=== PATIENT | female | born 1995 | race Caucasian/White ===

== ENCOUNTER 2018-02-02 21:15 | Emergency (ER) | payer OTHER, BC ==
[2018-02-02] MEDS: IBUPROFEN 600 MG TAB PO (23:20)
== END 2018-02-03 00:14 | disposition home or self-care (01) ==
LOC: FTE 02-03 00:14
DX: M79.641 Pain in right hand (principal); M25.512 Pain in left shoulder; R07.9 Chest pain, unspecified
CPT/HCPCS: 71045; 73030; 73130-RT; 93005; 99284-25